=== PATIENT | female | born 1940 | race Caucasian/White ===

== ENCOUNTER 2018-07-08 23:30 | Emergency (ER) | payer OTHER, MEDICAID ==
[~2018-07-08] VITALS: Ht 152.4 cm; Wt 67.1 kg
[2018-07-08 23:35] VITALS: BP 185/81
[2018-07-08] MEDS ORDERED: IMO2 PO (23:58)
[2018-07-08] MEDS ORDERED: LOSA50TA1 PO (23:58)
[2018-07-08] MEDS ORDERED: METF500T PO (23:58)
[2018-07-08] MEDS ORDERED: OMEP20TC12 PO (23:58)
[2018-07-08] MEDS ORDERED: ONDA4TAB PO (23:58)
[2018-07-08] MEDS ORDERED: ERGO2000 PO (23:58)
[2018-07-08] MEDS ORDERED: FERR325E14 PO (23:58)
[2018-07-08] MEDS ORDERED: DOCU100C16 PO (23:58)
[2018-07-08] MEDS ORDERED: VITB1I PO (23:58)
[2018-07-08] MEDS ORDERED: ASPI81CT89 PO (23:58)
[2018-07-08] MEDS ORDERED: ALPR0.252 PO (23:58)
[2018-07-09] MEDS ORDERED: ACETAMINOPHEN EXTRA STRENGTH 500 MG TAB PO ONE (00:25)
[2018-07-09 00:55] LABS: HEMATOCRIT 34.1 % (36-48); HEMOGLOBIN 10.9 g/dL (12.0-16.0); MEAN CORPUSCULAR HEMOGLOBIN 25 pg (27-31); MEAN CORPUSCULAR HGB CONC 32 g/dL (33-37); MEAN CORPUSCULAR VOLUME 78.2 fL (80-94); PLATELET COUNT (AUTO) 320 K/uL (140-450); RED BLOOD CELL COUNT(AUTO) 4.36 MIL/uL (4.20-5.40); RED CELL DISTRIBUTION WIDTH 21.2 % (11.6-13.7); WHITE BLOOD COUNT (AUTO) 9.8 K/uL (4.8-10.8)
[2018-07-09 01:19] LABS: PROTHROMBIN TIME 10.2 secs (10.8-13.4)
[2018-07-09 01:21] LABS: ALBUMIN 3.3 g/dL (3.4-5.0); ANION GAP 12.7 (8-16); ASPARTATE AMINOTRANSFERASE 14 U/L (15-37); CHLORIDE 98 mmol/L (98-107); GLUCOSE 148 mg/dL (74-106); POTASSIUM 4.7 mmol/L (3.5-5.1); SODIUM SERUM 132 mmol/L (136-145); TOTAL BILIRUBIN 0.3 mg/dL (0.0-1.0); UREA NITROGEN, BLOOD 16 mg/dL (7-18)
[2018-07-09 01:23] LABS: LYMPHOCYTES % (MANUAL) 25 % (20-46); MONOCYTES % (MANUAL) 5 % (5-12)
[2018-07-09 02:45] VITALS: BP 173/51
== END 2018-07-09 02:45 | disposition home or self-care (01) ==
LOC: MED 23:30
DX: S00.83XA Contusion of other part of head, initial encounter (principal); S20.219A Contusion of unspecified front wall of thorax, initial encounter; S80.02XA Contusion of left knee, initial encounter; S80.01XA Contusion of right knee, initial encounter; E11.9 Type 2 diabetes mellitus without complications; I10 Essential (primary) hypertension; Z79.899 Other long term (current) drug therapy; V43.52XA Car driver injured in collision with other type car in traffic accident, initial encounter; Y93.19 Activity, other involving water and watercraft; Y92.488 Other paved roadways as the place of occurrence of the external cause; Y99.8 Other external cause status
CPT/HCPCS: 36415; 70450; 71045; 72125; 73080; 73562; 80053; 81002; 82948; 84484; 85025; 85610; 85730; 93005; 99285